=== PATIENT | female | born 1980 ===

== ENCOUNTER 2018-07-13 17:51 | Emergency (ER) | payer OTHER ==
[~2018-07-13] VITALS: Ht 152.4 cm; Wt 56.7 kg
[2018-07-13] MEDS ORDERED: EFFEXOR XR150 MG (18:21)
[2018-07-13] MEDS ORDERED: CLONAZEPAM0.5 MG (18:21)
[2018-07-13] MEDS ORDERED: ZYPREXA15 MG (18:22)
== END 2018-07-13 21:42 | disposition home or self-care (01) ==
LOC: ER 17:51
DX: J40 Bronchitis, not specified as acute or chronic (principal)